=== PATIENT | female | born 1965 | race Caucasian/White ===

== ENCOUNTER 2018-06-19 07:55 | Outpatient (CLI) | payer OTHER ==
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
== END 2018-06-19 07:56 | disposition home or self-care (01) ==
LOC: TBSIIMAG 07:55
PROVIDERS: ATTEND Family Medicine
DX: S39.92XA Unspecified injury of lower back, initial encounter (principal); M48.061 Spinal stenosis, lumbar region without neurogenic claudication; M99.83 Other biomechanical lesions of lumbar region
CPT/HCPCS: 72148